=== PATIENT | male | born 1955 | race Asian ===

== ENCOUNTER 2018-11-21 13:08 | Inpatient (IN) | payer OTHER ==
[~2018-11-21] VITALS: Ht 175.3 cm; Wt 92.5 kg
[2018-11-21 13:22] VITALS: Ht 175.3 cm; Wt 92.5 kg
[2018-11-21 13:54] LABS: microscopic required? NO
[2018-11-21 14:01] LABS: BASOPHIL % 0.6 % (0-2); PLATELET COUNT 305 x10^3mcL (130-400); RED CELL DISTRIBUTION WIDTH 13.3 % (11.5-14.5)
[2018-11-21 14:06] LABS: urine erythrocyte NEGATIVE (NEGATIVE)
[2018-11-21 14:19] LABS: CALCIUM 8.8 mg/dL (8.5-10.1); CARBON DIOXIDE 29.8 mmol/L (21-32); CHLORIDE SERUM 100 mmol/L (98-107); CREATININE SERUM 1.2 mg/dL (0.7-1.3); GFR1 > 60 mL/min; GLUCOSE SERUM 224 mg/dL (74-106); POTASSIUM SERUM 3.7 mmol/L (3.5-5.1); SODIUM SERUM 137 mmol/L (136-145)
[2018-11-21 14:31] LABS: ALBUMIN 4.3 g/dL (3.4-5.0); ALKALINE PHOSPHATASE 62 U/L (46-116); ALT/SGPT 40 U/L (16-63); AMYLASE 69 U/L (25-115); AST/SGOT 31 U/L (15-37); BILIRUBIN TOTAL 0.3 mg/dL (0.20-1.00); HDL CHOLESTEROL 35 mg/dL (40-60); LIPASE 138 IU/L (73-393); MAGNESIUM 2.6 mg/dL (1.8-2.4); T4(THYROXINE) 6.9 ug/dL (4.7-13.3)
[2018-11-21 14:36] LABS: CHOLESTEROL 211 mg/dL (<200); TOTAL PROTEIN, SERUM 8.4 g/dL (6.4-8.2)
[2018-11-21 14:41] LABS: AMPHETAMINE QUAL UR NONE DETECTED (See below)
[2018-11-21] MEDS ORDERED: ASPIR 8181 MG PO (15:39)
[2018-11-21 18:13] VITALS: BP 135/74
[2018-11-21 21:06] VITALS: BP 110/60
[2018-11-22 05:41] VITALS: BP 122/72
[2018-11-22 06:32] LABS: BASOPHIL % 0.7 % (0-2); CALCIUM 8.5 mg/dL (8.5-10.1); CARBON DIOXIDE 29.1 mmol/L (21-32); CHLORIDE SERUM 104 mmol/L (98-107); CREATININE SERUM 1.2 mg/dL (0.7-1.3); GFR1 > 60 mL/min; GLUCOSE SERUM 135 mg/dL (74-106); MAGNESIUM 2.4 mg/dL (1.8-2.4); PLATELET COUNT 264 x10^3mcL (130-400); RED CELL DISTRIBUTION WIDTH 13.4 % (11.5-14.5); SODIUM SERUM 139 mmol/L (136-145)
[2018-11-22 09:38] VITALS: BP 122/72
[2018-11-22 09:57] VITALS: BP 114/72
[2018-11-22] MEDS ORDERED: METFORMIN HYDR500 M1 PO (13:02)
[2018-11-22 13:11] VITALS: BP 114/72
[2018-11-22 14:04] VITALS: BP 137/85
== END 2018-11-22 14:53 | disposition home or self-care (01) | DRG 74 ==
LOC: ED 13:08 → DU 15:12
PROVIDERS: Emergency Medicine; ADMIT Internal Medicine
DX: G90.8 Other disorders of autonomic nervous system (principal); G45.9 Transient cerebral ischemic attack, unspecified; E11.65 Type 2 diabetes mellitus with hyperglycemia; M06.9 Rheumatoid arthritis, unspecified; G47.33 Obstructive sleep apnea (adult) (pediatric); E78.5 Hyperlipidemia, unspecified; M47.892 Other spondylosis, cervical region; M50.31 Other cervical disc degeneration, high cervical region; E83.41 Hypermagnesemia; Z79.82 Long term (current) use of aspirin; Z72.89 Other problems related to lifestyle; Z79.899 Other long term (current) drug therapy
CPT/HCPCS: 82962; Q0092

== ENCOUNTER 2019-09-07 09:43 | Day surgery (SDC) | payer OTHER ==
[~2019-09-07] VITALS: Ht 172.7 cm; Wt 87.1 kg
[~2019-09-07 09:43] MED LIST: ASPIR 8181 MG PO; METFORMIN HYDR500 M1 PO
[2019-09-07 10:45] VITALS: BP 137/77
[2019-09-07 14:18] VITALS: BP 121/84
== END 2019-09-07 14:30 | disposition home or self-care (01) ==
LOC: DS 09:43 → OR 12:30 → GI 12:30 → DS 14:30
DX: Z12.11 Encounter for screening for malignant neoplasm of colon (principal); K64.8 Other hemorrhoids; M19.90 Unspecified osteoarthritis, unspecified site; Z79.82 Long term (current) use of aspirin; Z80.0 Family history of malignant neoplasm of digestive organs; Z86.010 Personal history of colon polyps; Z79.899 Other long term (current) drug therapy; Z98.890 Other specified postprocedural states
CPT/HCPCS: 45378; J1200; J1610; J2250; J2310; J3010; J3490